=== PATIENT | male | born 1975 | race Caucasian/White ===

== ENCOUNTER 2020-05-01 14:15 | Emergency (ER) | payer SELFPAY ==
[2020-05-01 14:45] VITALS: BP 135/89; PULSE 66; RESP 16; TEMP 36.5; O2SAT 97; BMI 32.4
--- NOTE | 2020-05-01 15:01 | CT_ITS ---
WS: [id number] CT abdomen pelvis w con* [id number] REASON FOR EXAM: abd pain IV CONTRAST ADMINISTERED: 75 mL of Omnipaque 300. TOTAL EXAM DLP: 1582.[address] scans at [facility] use at least one of these dose optimization techniques: automat ed exposure control; mA and/or kV adjustment per patient size (includes targeted exams where dose is matched to clinical indication); or iterative reconstruction. FINDINGS: ABDOMEN: The liver, gallbladder, pancreas, and spleen are unremarkable. The adrenal glands are within normal limits. The kidneys are unremarkable. No abdominal ureteral calculi. No mass, adenopathy, focal fluid, or free fluid is identified. No bowel abnormality. Normal appendix identified. Abdominal aorta and its major branches are unremarkable. PELVIS: Urinary bladder is unremarkable. No bladder calculi are distal ureteral calculi. No mass or adenopathy. No free fluid or focal fluid collection. CT/CT abdomen pelvis w con* [id number] IMPRESSION: No acute abdominal or pelvic abnormality.
--- NOTE | 2020-05-01 15:10 | ED_ITS ---
HPI - General Adult General: Chief complaint: General Medical Stated complaint: groin pain Time Seen by Provider: 05/01/20 14:53 Source: patient Mode of arrival: ambulatory History of Present Illness: HPI narrative: 45-year-old male states he has been having left shoulder pain and left groin pain over the last few days. He states that shoulder pain is actually been for months groin pain is what brought him here today and wanted his shoulder checked out as well. He states the groin pain is sharp in nature and worse with movement or palpation. Denies any known hernia. Patient denies any dysuria or testicle pain. He denies any known injuries. He rates his pain a 5 out of 10 currently. Associated symptoms: Deny chest pain, dyspnea, headache(s) or rash Review of Systems Const: Denies: fever(s), chills, body aches or change in appetite Eyes: Denies: blurry vision or eye discomfort ENMT: Denies: throat pain or dental pain Card: Denies: chest pain Resp: Denies: dyspnea GI: Reports: abdominal pain : Denies: dysuria Musc: Denies: neck pain or back pain Skin/Breast: Denies: rash Neuro: Denies: headache(s) Psych: Denies: depression Kunal/Lymph: Denies: easy bruising All/Imm: Denies: urticaria PFSH ED PFSH: Social History Smoking and tobacco status: current every day smoker cigarettes Packs smoked per day: 0.5 Alcohol intake: never Substance/Drug Use: never Physical Exam Const: COMMON NORMALS: no acute distress, patient oriented x3 and healthy appearing HENMT: COMMON NORMALS: normocephalic and atraumatic HEAD & SCALP: normocephalic and atraumatic Eye: COMMON NORMALS: Equal, round and reactive pupils present and EOMs intact bilaterally PUPIL: Yes Equal, round and reactive pupils present Neck/C-Spine: COMMON NORMALS: full ROM and supple Chest: COMMONS NORMALS: normal inspection of the chest and normal palpation of entire chest wall Resp: COMMON NORMALS: normal respiratory effort, No retractions, No use of accessory muscles and clear to auscultation bilaterally AUSCULTATION: clear to auscultation bilaterally Cardio: COMMON NORMALS: regular rate, regular rhythm and No murmurs present (Cardio) RATE: regular rate RHYTHM: regular rhythm GI: COMMON NORMALS: Normal to inspection, nondistended, normoactive bowel sounds present, Soft to palpation and no masses PALPATION: Yes Soft to palpation and Yes Tenderness to palpation present (GI) (left groin with no mass or hernia) Extremity: COMMON NORMALS: normal to inspection and full ROM Neuro: COMMON NORMALS: patient oriented x3, moves all extremities and no focal motor deficits Psych: COMMON NORMALS: mental status grossly normal, Normal thought process present and cooperative THOUGHT PROCESS: Normal thought process present Skin: COMMON NORMALS: no rashes or lesions noted and no wounds GENERAL SKIN EXAM: no rashes or lesions noted Course Vital Signs: Vital signs: Vital Signs Temperature 97.7 F 05/01/20 14:45 Pulse Rate 66 05/01/20 14:45 Respiratory Rate 16 05/01/20 14:45 Blood Pressure 135/89 05/01/20 14:45 Pulse Oximetry 97 05/01/20 14:45 MDM - General Adult MDM Narrative: Medical decision making narrative: Patient presents here with groin pain that is likely muscular in nature. He is tender over his upper left groin. He has no testicle pain or tenderness. He has no acute surgical abdomen. CT and lab work here are all normal. He is stable for discharge and is to rest and ice and will placed on Naprosyn. He is to follow-up his PCP and return if worsening. Lab Data: Labs: Lab Results 05/01/20 05/01/20 Range/Units 15:55 15:55 WBC 7.7 (4.0-10.0) 10^3/ uL RBC 5.35 H (4.1-5.3) 10^6/u L Hgb 15.7 (11.7-16.6) g/dL Hct 49.2 (42.0-52.0) % MCV 92.0 (80-94) fL MCH 29.3 (28.0-34.0) pg MCHC 31.9 (30.0-36.0) g/dL RDW 13.0 (12.1-15.1) % Plt Count 232 (130-400) 10^3/c mm MPV 9.6 (7.4-10.4) fL Neut % (Auto) 50.1 % Lymph % (Auto) 39.0 % [place] % (Auto) 6.6 % Eos % (Auto) 3.1 % Baso % (Auto) 0.9 % Neut # (Auto) 3.84 (1.8-7.7) 10^3/u L Lymph # (Auto) 3.0 (0.8-4.8) 10^3/u L [place] # (Auto) 0.5 (0.2-0.9) 10^3/u L Eos # (Auto) 0.2 (0.0-0.8) 10^3/u L Baso # (Auto) 0.1 (0.0-0.1) 10^3/u L Nucleated RBC % (a uto) 0 % Nucleated RBCs # 0.0 /100WBC Sodium 134 L (136-145) mmol/L Potassium 4.0 (3.5-5.1) mmol/L Chloride 101 (98-107) mmol/L Carbon Dioxide 22 (22-29) mmol/L Anion Gap 15.0 (5-19) BUN 14 (6-20) mg/dL Creatinine 0.9 (0.7-1.2) mg/dL GFR Calculation 90.8 (90-130) mL/min Glucose 91 (65-115) mg/dL Calculated Osmolal ity 278 L (285-295) mOsm/k g Calcium 9.5 (8.5-10.5) mg/dL Total Bilirubin 0.8 (0.15-1.2) mg/dL AST 22 (0-40) U/L ALT 29 (0-41) U/L Alkaline Phosphata se 46 (40-130) IU/L Total Protein 6.7 (6.6-8.7) g/dL Albumin 4.1 (3.5-5.2) g/dL Globulin 2.6 (1.3-4.6) g/dL Lipase 47 (13-60) U/L Imaging Data^: xr l shoulder: Radiologist's impression: [facility] [address] [place] [address] XRay Report Signed Patient: Manuel Sullivan Unit #: [id number] : 1975 Age/Sex: 45 / M ADM Date: 05/01/20 Loc: ER Room/Bed: Attending Dr: Ordering Provider/Ordering MD: Alex Juan MD Date of Service: 05/01/20 Procedure(s): XR shoulder LT min 2V* [id number] Accession Number(s): [id number] Report Number: [id number] PROCEDURE INFORMATION: Exam: XR Left Shoulder Exam date and time: 05/01/2020 3:19 PM Age: 45 years old Clinical indication: Pain; Shoulder; Left TECHNIQUE: Imaging protocol: XR Left shoulder. Views: 2 or more views. COMPARISON: No relevant prior studies available. FINDINGS: Bones/joints: Negative for acute bony abnormality. Soft tissues: Normal. XR/XR shoulder LT min 2V* [id number] IMPRESSION: No acute findings. Are are CT Abd/Pel: Radiologist's impression: [place] [address] CT Scan Report Signed Patient: Manuel Sullivan Unit #: [id number] : 1975 Age/Sex: 45 / M ADM Date: 05/01/20 Loc: ER Room/Bed: Attending Dr: Ordering Provider/Ordering MD: Alex Juan MD Date of Service: 05/01/20 Procedure(s): CT abdomen pelvis w con* [id number] Accession Number(s): [id number] Report Number: [id number] WS: [id number] CT abdomen pelvis w con* [id number] REASON FOR EXAM: abd pain IV CONTRAST ADMINISTERED: 75 mL of Omnipaque 300. TOTAL EXAM DLP: 1582.[address] scans at [facility] use at least one of these dose optimiz ation techniques: automated exposure control; mA and/or kV adjustment per patient size (includes targeted exams where dose is matched to clinical indication); or iterative reconstruction. FINDINGS: ABDOMEN: The liver, gallbladder, pancreas, and spleen are unremarkable. The adrenal glands are within normal limits. The kidneys are unremarkable. No abdominal ureteral calculi. No mass, adenopathy, focal fluid, or free fluid is identified. No bowel abnormality. Normal appendix identified. Abdominal aorta and its major branches are unremarkable. PELVIS: Urinary bladder is unremarkable. No bladder calculi are distal ureteral calculi. No mass or adenopathy. No free fluid or focal fluid collection. CT/CT abdomen pelvis w con* [id number] IMPRESSION: No acute abdominal or pelvic abnormality. Discharge Plan Discharge Patient Disposition: Home Clinical Impression: Left groin pain, Left shoulder pain Condition: Stable Prescriptions: New Robaxin-750 750 mg tablet 750 mg PO Q6H Qty: 30 RF: 0 Naprosyn 500 mg tablet 500 mg PO BID PRN (Reason: pain) Qty: 20 RF: 0 Discharge Orders: Discharge ED (Routine); Ordered 05/01/20 Ordered By: Alex Juan Discharge Diet: Advance as tolerated Discharge Activity: Resume usual activity Patient Instructions: Groin Pain (ED) Stand Alone Forms: Work/School Release Coding Level of Care Code ED Childhood Development Teacher for Wes Fwd Exam Comprehensive
--- NOTE | 2020-05-01 15:10 | XRR_ITS ---
PROCEDURE INFORMATION: Exam: XR Left Shoulder Exam date and time: 05/01/2020 3:19 PM Age: 45 years old Clinical indication: Pain; Shoulder; Left TECHNIQUE: Imaging protocol: XR Left shoulder. Views: 2 or more views. COMPARISON: No relevant prior studies available. FINDINGS: Bones/joints: Negative for acute bony abnormality. Soft tissues: Normal. XR/XR shoulder LT min 2V* [id number] IMPRESSION: No acute findings. Are are
[2020-05-01] MEDS: iohexol 300 mg/mL 100 mL Btl IV (15:14)
[2020-05-01 16:09] LABS: Basophils # 0.1 10^3/uL (0.0-0.1); Basophils % 0.9 %; Eosinophils # 0.2 10^3/uL (0.0-0.8); Eosinophils % 3.1 %; Hematocrit 49.2 % (42.0-52.0); Hemoglobin 15.7 g/dL (11.7-16.6); Mean Corpuscular HGB Conc 31.9 g/dL (30.0-36.0); Mean Corpuscular Hemoglobin 29.3 pg (28.0-34.0); Mean Platelet Volume 9.6 fL (7.4-10.4); Monocytes # 0.5 10^3/uL (0.2-0.9); Monocytes % 6.6 %; Neutrophils # 3.84 10^3/uL (1.8-7.7); Neutrophils % 50.1 %; Nucleated Red Blood Cells % 0 %; Platelet Count 232 10^3/cmm (130-400); Red Blood Count 5.35 10^6/uL (4.1-5.3); White Blood Count 7.7 10^3/uL (4.0-10.0)
[2020-05-01 16:31] LABS: Alanine Aminotransferase 29 U/L (0-41); Albumin Level 4.1 g/dL (3.5-5.2); Alkaline Phosphatase 46 IU/L (40-130); Aspartate Amino Transferase 22 U/L (0-40); Blood Urea Nitrogen 14 mg/dL (6-20); Calcium 9.5 mg/dL (8.5-10.5); Carbon Dioxide 22 mmol/L (22-29); Chloride 101 mmol/L (98-107); Globulin 2.6 g/dL (1.3-4.6); Glomerular Filtration Rate 90.8 mL/min (90-130); Glucose 91 mg/dL (65-115); Lipase 47 U/L (13-60); Osmolality Calculated 278 mOsm/kg (285-295); Sodium 134 mmol/L (136-145); Total Bilirubin 0.8 mg/dL (0.15-1.2); Total Protein 6.7 g/dL (6.6-8.7)
[2020-05-01 16:51] VITALS: BP 135/81; RESP 18
== END 2020-05-01 16:51 | disposition home or self-care (01) ==
PROVIDERS: Emergency Provider Emergency Medicine
DX: R10.32 Left lower quadrant pain (principal); M25.512 Pain in left shoulder; F17.210 Nicotine dependence, cigarettes, uncomplicated
CPT/HCPCS: 12345; 73030; 74177; 80053; 83690; 85025; 99282; 99283; Q9967

== ENCOUNTER → 2020-05-03 12:34 | Outpatient (BNVA) | payer SELFPAY | PROVIDERS: Visit Provider Nurse Practitioner Family | DX: R10.32 Left lower quadrant pain (principal); S76.212A Strain of adductor muscle, fascia and tendon of left thigh, initial encounter; X58.XXXA Exposure to other specified factors, initial encounter | CPT/HCPCS: 81000 ==

== ENCOUNTER 2020-05-28 07:52 | Outpatient (CLI) | payer SELFPAY ==
--- NOTE | 2020-05-28 07:59 | USCV_ITS ---
Manuel Sullivan Age: 45 Gender: M : 1975 Exam Date: 05/28/2020 08:09 Ordering Phys: Trinh WaltonP Technologist: Franky Archuleta [place] [facility] [place]ication: LT LOWER QUAD AND GROIN PAIN PROCEDURES: Venous duplex imaging was performed in only the left lower extremity. The following venous structures were evaluated: common femoral vein, profunda vein, proximal portion of the greater saphenous vein, superficial femoral vein, and the popliteal vein. In addition, the posterior tibial and peroneal trunk were evaluated. Serial compression, augmentation maneuvers, and spectral Doppler flow evaluation were performed. FINDINGS: Normal 2-D Doppler and augmentation and compressibility throughout the lower extremity venous structures. Additional imaging through the proximal calf veins also reveals no thrombus. Limited evaluation of the greater saphenous vein is patent with no thrombus. CONCLUSIONS No DVT left lower extremity. Dr. Pam Sanchez DO (Electronically Signed) Final Date: 28 May 2020 09:49 S
== END 2020-05-28 07:53 | disposition home or self-care (01) ==
PROVIDERS: PCP Nurse Practitioner Family; Visit Provider Nurse Practitioner Family
DX: R10.32 Left lower quadrant pain (principal)
CPT/HCPCS: 93971

== ENCOUNTER 2021-07-22 13:56 | Emergency (ER) | payer SELFPAY ==
[2021-07-22 14:14] VITALS: BMI 37.9
[2021-07-22 14:18] VITALS: BP 148/89; PULSE 71; RESP 16; TEMP 36.7; O2SAT 95
--- NOTE | 2021-07-22 14:30 | XRR_ITS ---
PROCEDURE INFORMATION: Exam: XR Right Shoulder Exam date and time: 07/22/2021 2:30 PM Age: 46 years old Clinical indication: Pain and injury or trauma; Fall; Blunt trauma (contusions or hematomas); Shoulder; Right; Additional info: Fall injury-shoulder pain TECHNIQUE: Imaging protocol: XR Right shoulder. Views: 2 or more views. COMPARISON: No relevant prior studies available. FINDINGS: Bones/joints: Normal. Soft tissues: Normal. XR/XR shoulder RT min 2V* [id number] IMPRESSION: No acute findings.
--- NOTE | 2021-07-22 14:31 | W.ED.EXTPRO ---
HPI - Extremity Problem General: Chief complaint: Extremity Injury, Upper Stated complaint: R arm injury Time Seen by Provider: 07/22/21 14:21 History of Present Illness: Patient is a 46-year-old male comes to the ED with right shoulder shoulder injury. Injury occurred yesterday. Patient says he is in his house and tripped causing him to fall down onto his right arm. Afterwards he is having pain in his right shoulder. He rates his pain currently a 7 out of 10. He took some ibuprofen and Tylenol last night but is not taking any [id number] pain med before coming to the ED today. He has full range of motion in right shoulder but he endorses some pain with range of motion. Associated symptoms: Deny chest pain, fever(s) or rash Review of Systems Const: Denies: fever(s), chills or fatigue Eyes: Denies: change in vision or eye discomfort ENMT: Denies: throat pain, odynophagia, nasal discharge or nasal congestion Card: Denies: chest pain, palpitations, edema, swelling of feet/ankles, dyspnea on exertion or orthopnea Resp: Denies: dyspnea, productive cough or non-productive cough GI: Denies: abdominal pain, nausea, vomiting, diarrhea, constipation or hematochezia : Denies: flank pain, difficulty urinating, dysuria or hematuria Musc: Reports: extremity pain (right shoulder); Denies: neck pain, back pain or extremity swelling Skin/Breast: Denies: rash or new lesions Neuro: Denies: headache(s), numbness in extremities or weakness in extremities [facility] ED PFSH: Medical History No pertinent family history Surgical History No pertinent past surgical history Social History Smoking and tobacco status: current every day smoker cigarettes Packs smoked per day: 0.5 Alcohol intake: never Physical Exam Const: COMMON NORMALS: no acute distress, patient oriented x3 and alert GENERAL APPEARANCE: cooperative and comfortable HENMT: COMMON NORMALS: normocephalic HEAD & SCALP: normocephalic MOUTH: Normal oral and palatal mucosa present THROAT: posterior oropharynx normal and uvula midline Neck/C-Spine: COMMON NORMALS: supple GENERAL: Yes normal visual inspection Resp: COMMON NORMALS: normal respiratory effort, No retractions, No use of accessory muscles and clear to auscultation bilaterally AUSCULTATION: clear to auscultation bilaterally Cardio: COMMON NORMALS: regular rate, regular rhythm, S1 normal heart sound present, S2 normal heart sound present, No gallops present (Cardio), No clicks present (Cardio), No murmurs present (Cardio) and Peripheral pulses 2+ throughout RATE: regular rate RHYTHM: regular rhythm HEART SOUNDS: S1 normal heart sound present and S2 normal heart sound present PERIPHERAL PULSES: Peripheral pulses 2+ throughout GI: COMMON NORMALS: Normal to inspection, nondistended, normoactive bowel sounds present, Soft to palpation, non-tender and no masses PALPATION: Yes Soft to palpation : COMMON NORMALS: Yes no CVA tenderness BLADDER/KIDNEY EXAM: Yes no CVA tenderness Back/Pelvis: COMMON NORMALS: no CVA tenderness Extremity: COMMON NORMALS: normal to inspection and full ROM Neuro: COMMON NORMALS: patient oriented x3 SENSORIUM/ORIENTATION: Yes alert Skin: GENERAL SKIN EXAM: dry skin Course Vital Signs: Vital signs: Vital Signs Temperature 98.1 F 07/22/21 14:18 Pulse Rate 71 07/22/21 14:18 Respiratory Rate 16 07/22/21 14:18 Blood Pressure 148/89 07/22/21 14:18 Pulse Oximetry 95 07/22/21 14:18 MDM - Extremity (Nontraumatic) Medical Decision Making Patient is a 46-year-old male comes to the ED with a right shoulder injury after having a fall. Exam was benign and patient had full range of motion in right shoulder. X-ray of right shoulder showed no acute fractures or findings. Patient diagnosed with right shoulder injury and discharged home with a sling and he was told to use it for the next 2 to 3 days to allow for healing. Also instructed him to make sure he does not wear it any bit longer and that while he is wearing the sling he removes his arm from the sling at least 4 times a day and do some range of motion exercises. Follow-up PCP in 7 to 10 days reevaluation. Patient understood and agreed with plan. Lab Data Radiology Impressions Shoulder X-Ray 07/22/21 14:30 IMPRESSION: No acute findings. Discharge Plan Discharge Patient Disposition: Home Clinical Impression: Right shoulder injury Qualifiers: Encounter type: initial encounter Qualified Code(s): S49.91XA - Unspecified injury of right shoulder and upper arm, initial encounter Condition: Stable Prescriptions: No Action Robaxin-750 750 mg tablet 750 mg PO Q6H Qty: 30 0RF Naprosyn 500 mg tablet 500 mg PO BID PRN (Reason: pain) Qty: 20 0RF Discharge Orders: Discharge ED (Routine); Ordered 07/22/21 Ordered By: Negrito Marvin Referrals: Trinh Walton FNP [Primary Care Provider] - Discharge Diet: Regular Discharge Activity: Increase activity as tolerated Patient Instructions: Shoulder Pain (ED) Activity Restrictions/Additional Instructions: Follow-up with medical provider as directed in 5 to 7 days for evaluation. Wear shoulder sling for the next 2 to 3 days to allow your shoulder to heal up. Apply cold pack on right shoulder. Make sure to remove your right arm from sling at least 4 times a day and do some range of motion exercises. Take [id number] ibuprofen or Tylenol for pain. Return to the ER or your medical provider if condition worsens. Please read and understand discharge instructions. Thank you for choosing [facility] for your healthcare needs today. Please realize this is an emergency room and that we are providing you with a medical screening exam and this may not be complete and all inclusive of all the testing and or work up that you may need to determine your ailment or severity of your illness. It is very important that you follow up as instructed or that you return to the Emergency Department should you have concerns or if your condition changes or worsens in any way. Coding Level of Care Code ED Heating Mechanic for Wes Moulton Exam Comprehensive
[2021-07-22] MEDS: ibuprofen 800 mg tablet PO (14:34)
== END 2021-07-22 15:36 | disposition home or self-care (01) ==
PROVIDERS: Emergency Provider Physician Assistant; PCP Nurse Practitioner Family
DX: S49.91XA Unspecified injury of right shoulder and upper arm, initial encounter (principal); F17.210 Nicotine dependence, cigarettes, uncomplicated; W01.0XXA Fall on same level from slipping, tripping and stumbling without subsequent striking against object, initial encounter
CPT/HCPCS: 73030; 99283

== ENCOUNTER 2021-12-17 13:02 | Emergency (ER) | payer MEDICAID, SELFPAY ==
[2021-12-17 13:12] VITALS: BP 151/92; PULSE 68; RESP 18; TEMP 36.2; O2SAT 94; BMI 34.1
[2021-12-17 13:15] VITALS: BP 151/92; PULSE 68; RESP 18; TEMP 36.2; O2SAT 94
--- NOTE | 2021-12-17 13:18 | ED_ITS ---
HPI - General Adult General: Chief complaint: General Medical Stated complaint: right shoulder pain Time Seen by Provider: 12/17/21 13:18 History of Present Illness: 46-year-old male patient comes in today with continued pain to the right shoulder. Patient had fallen in July of this year and since then has had persistent right shoulder pain with range of motion. X- rays at that time did not show any signs of fracture or dislocation. Patient reports he does not have a primary care provider. Review of Systems General: Reports: 10 or more systems reviewed and unremarkable except in HPI and below Musc: Reports: joint pain (Right shoulder) PFS ED PFSH: Medical History No pertinent family history Surgical History No pertinent past surgical history Social History Smoking and tobacco status: current every day smoker cigarettes Packs smoked per day: 0.5 Alcohol intake: never Physical Exam Const: COMMON NORMALS: alert HENMT: COMMON NORMALS: normocephalic HEAD & SCALP: normocephalic Neck/C-Spine: COMMON NORMALS: full ROM Resp: COMMON NORMALS: normal respiratory effort Cardio: COMMON NORMALS: regular rate RATE: regular rate Extremity: RIGHT UPPER EXTREMITY: Yes shoulder joint (Anterior shoulder tenderness, normal range of motion, no crepitus) Right shoulder: Yes Right shoulder joint inspection exam, Yes palpation and Yes Right shoulder joint ROM exam Neuro: SENSORIUM/ORIENTATION: Yes alert Skin: COMMON NORMALS: no rashes or lesions noted GENERAL SKIN EXAM: no rashes or lesions noted Course Vital Signs: Vital signs: Vital Signs Temperature 97.1 F L 12/17/21 13:12 Pulse Rate 68 12/17/21 13:12 Respiratory Rate 18 12/17/21 13:12 Blood Pressure 151/92 12/17/21 13:12 Pulse Oximetry 94 12/17/21 13:12 Oxygen Delivery Me thod 12/17/21 13:12 [facility] - General Adult Medical Decision Making 46-year-old male patient comes in today with complaints of right anterior shoulder tenderness. On palpation of the right anterior shoulder we note some mild swelling and tenderness. Patient has good range of motion but reports pain with movement. Distal pulses and sensation are intact. Differential diagnosis includes rotator cuff injury, tendinitis, malingering. Recommended patient use acetaminophen and diclofenac for pain. Patient was written a prescription for diclofenac sodium 75 mg twice a day for the next 10 days. Recommended light range of motion exercises. Case management referral was placed for orthopedic follow-up. Patient reported understanding of care plan need for follow-up or return to the ER. Discharge Plan Discharge Patient Disposition: Home Clinical Impression: Right anterior shoulder pain Condition: Stable Prescriptions: New diclofenac sodium 75 mg tablet,delayed release (DR/EC) 75 mg PO Q12H Qty: 20 0RF Discontinued methocarbamol [Robaxin-750] 750 mg tablet 750 mg PO Q6H Qty: 30 0RF naproxen [Naprosyn] 500 mg tablet 500 mg PO BID PRN (Reason: pain) Qty: 20 0RF Discharge Orders: Discharge ED (Routine); Ordered 12/17/21 Ordered By: Immanuel Teran Referrals: Trinh Walton FNP [Primary Care Provider] - Discharge Diet: Usual diet Discharge Activity: Increase activity as tolerated Patient Instructions: Shoulder Pain (ED) Activity Restrictions/Additional Instructions: Activity as tolerated. Gentle stretching and range of motion exercises of the shoulder. Use diclofenac for pain and inflammation. Do not use diclofenac with ibuprofen or naproxen. Drink plenty of water with medication. You may also use acetaminophen, Tylenol, for further pain relief. Case management will contact you regarding follow-up appointment with the orthopedist. Return to ER for new concerns or worsening symptoms. Coding Level of Care Code ED Computer Programming Professor for Wes Moulton
[2021-12-17 13:36] VITALS: BP 151/92; PULSE 68; RESP 18; TEMP 36.2; O2SAT 94
--- NOTE | 2021-12-18 09:01 | DCPLANNER ---
Addendum entered by Samara Flores 12/25/21 09:03: Patient had a follow up appointment scheduled for Thursday, December 23, 2021 at 3:00 with Edwin Alves. at ortho - patient did attend appointment. Addendum entered by Samara Flores 12/23/21 11:47: Patient has a follow up appointment scheduled for Thursday, December 23, 2021 at 3:00 with Edwin Alves at ortho. Clinic will call patient with appointment information. Original Note: support services manager had message to schedule a follow up appointment for patient with ortho. support services manager sent patients information to the front office staff at ortho. Patients information will be printed and reviewed. Clinic will call patient with appointment information.
== END 2021-12-17 13:32 | disposition home or self-care (01) ==
PROVIDERS: Emergency Provider Nurse Practitioner Family; PCP Nurse Practitioner Family
DX: M25.511 Pain in right shoulder (principal); F17.210 Nicotine dependence, cigarettes, uncomplicated
CPT/HCPCS: 99283

== ENCOUNTER → 2021-12-23 14:56 | Outpatient (BNVA) | payer MEDICAID, SELFPAY | PROVIDERS: PCP Nurse Practitioner Family; Referring Provider Nurse Practitioner Family; Visit Provider Nurse Practitioner Family | DX: M25.511 Pain in right shoulder (principal) | CPT/HCPCS: 73030 ==

== ENCOUNTER → 2022-09-10 10:42 | Outpatient (BNVA) | payer MEDICAID, SELFPAY | PROVIDERS: PCP Nurse Practitioner Family; Visit Provider Nurse Practitioner | DX: R11.10 Vomiting, unspecified (principal) | CPT/HCPCS: 87400; 87426 ==

== ENCOUNTER 2023-05-29 07:57 | Emergency (ER) | payer MEDICAID, SELFPAY ==
--- NOTE | 2023-05-29 08:00 | XRR_ITS ---
PROCEDURE INFORMATION: Exam: XR Left Foot Exam date and time: 05/29/2023 8:12 AM Age: 48 years old Clinical indication: Injury or trauma; Fall; Blunt trauma; Foot; Left TECHNIQUE: Imaging protocol: Radiologic exam of the left foot. Views: 3 or more views. COMPARISON: No relevant prior studies available. FINDINGS: Bones/joints: No displaced fracture nor dislocation seen. Partial fusion/coalition between cuboid and lateral cuneiform not excluded, though this could be due to projection, overlap. Soft tissues: No metallic foreign body seen. XR/XR foot LT min 3V* [id number] IMPRESSION: No displaced fracture seen of the foot. Please see body of report.
[2023-05-29 08:05] VITALS: BP 149/93; PULSE 90; RESP 16; TEMP 36.5; O2SAT 96
[2023-05-29 08:09] VITALS: BP 156/90
--- NOTE | 2023-05-29 08:36 | W.ED.EXTPRO ---
HPI - Extremity Problem General: Chief complaint: Extremity Problem,Nontraumatic Stated complaint: left foot injury Time Seen by Provider: 05/29/23 07:59 Source: patient Mode of arrival: ambulatory History of Present Illness: 48-year-old male with a history of gout bumped his toe on the frame of his bed yesterday and now is inflamed exquisitely tender left first MP joint. No other trauma no bruising is reddened extremely painful to light touch and any movement. He has a known history of gout he usually takes preventative medicine for it he thinks it is allopurinol his last flareup was a few months ago no other injury MD Complaint: joint pain Onset (ago): day(s) Pain Consistency: constant Location: left and toe (First MP joint) Quality: sharp Relieving factors: nothing Exacerbating factors: range of motion and palpation Associated symptoms: Reports arthralgias; Deny chest pain, fever(s), myalgias, rash or short of breath Review of Systems Const: Denies: fever(s) Card: Denies: chest pain Resp: Denies: dyspnea GI: Denies: abdominal pain : Denies: dysuria, urinary frequency or urinary urgency Musc: Denies: neck pain or back pain Skin/Breast: Denies: rash PFSH ED PFSH: Medical History (Updated 05/29/23 @ 08:39 by Rick Lamar DO) Gouty arthritis No pertinent family history Surgical History No pertinent past surgical history Social History Smoking and tobacco/nicotine status: current every day tobacco/nicotine user cigarettes Packs smoked per day: 0.5 Second hand smoke exposure: Yes Alcohol intake: never Substance/Drug Use: never Adopted: No Caregiver/support person: No Lives independently: Yes Household members: significant other Housing: House Marital status: Single Highest education level completed: High School Graduate service: No Current occupational status: unemployed Physical Exam Const: GENERAL APPEARANCE: cooperative and comfortable ORIENTATION/CONSCIOUSNESS: Yes awake, Yes oriented to person, Yes oriented to place and Yes oriented to time HENMT: COMMON NORMALS: normocephalic, atraumatic and hearing grossly normal bilaterally HEAD & SCALP: normocephalic and atraumatic Resp: COMMON NORMALS: normal respiratory effort, No retractions, No use of accessory muscles and clear to auscultation bilaterally AUSCULTATION: clear to auscultation bilaterally Cardio: COMMON NORMALS: regular rate, regular rhythm and No murmurs present (Cardio) RATE: regular rate RHYTHM: regular rhythm Extremity: OTHER: Left first MP joint red and inflamed exquisitely tender to the touch no bruising no ecchymosis no deformity Neuro: SENSORIUM/ORIENTATION: Yes oriented to person, Yes oriented to place and Yes oriented to time Skin: COMMON NORMALS: no rashes or lesions noted GENERAL SKIN EXAM: no rashes or lesions noted Course Vital Signs: Vital signs: Vital Signs Temperature 97.7 F 05/29/23 08:05 Pulse Rate 90 05/29/23 08:05 Respiratory Rate 16 05/29/23 08:05 Blood Pressure 149/93 05/29/23 08:05 Pulse Oximetry 96 05/29/23 08:05 Oxygen Delivery Me thod Room Air 05/29/23 08:05 MDM - Extremity (Nontraumatic) Medical Decision Making No acute fracture on x-ray suspect gout secondary to minor trauma started on steroids and indomethacin XR interpretation done by ED provider, pending radiology final review Discharge Plan Discharge Patient Disposition: Home Clinical Impression: Gouty arthritis of left great toe Condition: Stable Prescriptions: New indomethacin 50 mg capsule 50 mg PO TID PRN (Reason: pain) Qty: 21 0RF Rx Instructions: administer with food or milk prednisone 20 mg tablet 20 mg PO TID Qty: 15 0RF Rx Instructions: 1 p.o. 3 times daily x3 days, 1 p.o. twice daily x2 days, 1 p.o. daily x2 days Discharge Orders: Discharge ED (Routine); Ordered 05/29/23 Ordered By: Rick Lamar Referrals: Trinh Walton FNP [Primary Care Provider] - Discharge Diet: Usual diet Discharge Activity: Increase activity as tolerated Patient Instructions: Opioid Safety, Pain Management, Gout (ED) Activity Restrictions/Additional Instructions: Thank you for choosing [facility] for your healthcare needs today. Please realize this is an emergency room and that we are providing you with a medical screening exam and this may not be complete and all inclusive of all the testing and or work up that you may need to determine your ailment or severity of your illness. It is very important that you follow up as instructed or that you return to the Emergency Department should you have concerns or if your condition changes or worsens in any way. Coding Level of Care Code ED Collections Officer for Wes Moulton
[2023-05-29] MEDS: methylPREDNISolone sod succ 125 mg/2 mL INJ IM (08:52)
== END 2023-05-29 09:13 | disposition home or self-care (01) ==
PROVIDERS: Emergency Provider Family Medicine; PCP Nurse Practitioner Family
DX: M1A.9XX1 Chronic gout, unspecified, with tophus (tophi) (principal); F17.210 Nicotine dependence, cigarettes, uncomplicated
CPT/HCPCS: 73630; 96372; 99284; J2930

== ENCOUNTER 2024-04-18 14:35 | Outpatient (CLI) | payer SELFPAY ==
[2024-04-18] MEDS: iohexol 350 mg/mL 500 mL Btl (per mL) IV (14:50)
[2024-04-18 15:34] LABS: Basophils # 0.1 10^3/uL (0.0-0.1); Basophils % 1.1 %; Eosinophils # 0.1 10^3/uL (0.0-0.8); Eosinophils % 1.7 %; Hematocrit 48.9 % (37-53); Lymphocytes # 2.4 10^3/uL (0.8-4.8); Mean Corpuscular HGB Conc 33.3 g/dL (30-55); Mean Corpuscular Hemoglobin 29.7 pg (27-33); Mean Corpuscular Volume 89.1 fl (82-101); Mean Platelet Volume 9.8 fL (7.4-10.4); Monocytes # 0.5 10^3/uL (0.2-0.9); Neutrophils # 4.48 10^3/uL (1.8-7.7); Neutrophils % 58.8 %; Nucleated Red Blood Cells % 0 %; Platelet Count 206 10^3/cmm (157-399); Red Blood Count 5.49 10^6/uL (3.85-5.65); Red Cell Distribution Width 12.7 % (12.1-15.1); White Blood Count 7.61 10^3/uL (3.29-11.43)
--- NOTE | 2024-04-18 15:53 | XRR_ITS ---
PROCEDURE INFORMATION: Exam: XR Chest Exam date and time: 04/18/2024 4:03 PM Age: 49 years old Clinical indication: Dyspnea; Patient HX: Lump found on anterior throat x1 year; Additional info: R06.00 - dyspnea, unspecified TECHNIQUE: Imaging protocol: Radiologic exam of the chest. Views: 2 views. COMPARISON: CT neck w con* [id number] 04/18/2024 2:44 PM FINDINGS: Lungs: No focal consolidation. Pleural spaces: No pneumothorax. No significant pleural effusion. Heart/Mediastinum: The cardiomediastinal silhouette is unremarkable. Bones/joints: Unremarkable. XR/XR chest 2V* [id number] IMPRESSION: No acute cardiopulmonary disease.
[2024-04-18 16:12] LABS: Alanine Aminotransferase 19 U/L (0-41); Albumin Level 4.1 g/dL (3.5-5.2); Alkaline Phosphatase 48 U/L (40-130); Anion Gap 14.2 (5-19); Aspartate Amino Transferase 17 U/L (0-40); Blood Urea Nitrogen 8 mg/dL (6-20); Carbon Dioxide 26 mmol/L (22-29); Chloride 97 mmol/L (98-107); Free T4 Free Thyroxine 0.87 ng/dL (0.82-1.77); Globulin 2.6 g/dL (1.3-4.6); Glomerular Filtration Rate 79.1 mL/min (90-130); Glucose 92 mg/dL (65-115); Osmolality Calculated 274 mOsm/kg (285-295); Potassium 4.2 mmol/L (3.5-5.1); Sodium 133 mmol/L (136-145); Thyroid Stimulating Hormone 4.82 uIU/mL (0.27-4.20); Total Bilirubin 0.9 mg/dL (0.15-1.2); Total Protein 6.7 g/dL (6.6-8.7)
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
== END 2024-04-18 14:36 | disposition home or self-care (01) ==
PROVIDERS: PCP Nurse Practitioner Family; Visit Provider Nurse Practitioner Family
DX: R22.1 Localized swelling, mass and lump, neck (principal); M10.9 Gout, unspecified; R06.00 Dyspnea, unspecified
CPT/HCPCS: 36415; 70491; 71046; 80053; 84439; 84443; 85025